=== PATIENT | female | born 1995 | race Caucasian/White ===

== ENCOUNTER 2024-03-13 22:34 | Emergency (ER) | payer BC, SELFPAY ==
[2024-03-13 22:34] VITALS: BP 142/90; PULSE 88; RESP 16; TEMP 36.1; O2SAT 100; BMI 31.3
--- NOTE | 2024-03-14 00:17 | EX.ED.DYSGE1 ---
HPI History of Present Illness Chief Complaint: General Illness Informant: patient and spouse/S.O. Narrative Narrative: Patient is a 28-year-old female with no significant past medical history. She states that over the past 3 to 4 days she has had congestion and drainage. She states with this she has had headache sinus pain/pressure and right ear pain. She states she went to an urgent care where she was diagnosed with an ear infection and placed on amoxicillin. She states has been taking that for the past few days without symptom improvement and secondary to this comes in for evaluation. PFSH PFSH Medical History no medical history Home Medications ?Medication ?Instructions ?Recorded ?Last Taken ?Type cetirizine 10 mg capsule (Zyrtec) 10 mg PO DAILY PRN allergy symptoms 03/10/24 Unknown History ibuprofen 400 mg tablet 400 mg PO Q8H 03/10/24 Unknown History amoxicillin 500 mg capsule 500 mg PO TID 03/13/24 Unknown History amoxicillin 875 mg-potassium 1 tab PO BID 10 days #20 tabs 03/14/24 Unknown Rx clavulanate 125 mg tablet prednisone 20 mg tablet 40 mg (2 x 20 mg) PO DAILY 7 days 03/14/24 Unknown Rx #14 tabs Allergy/AdvReac Type Severity Reaction Status Date / Time No Known Allergies Allergy Verified 03/13/24 22:36 Social History (Updated 03/10/24 @ 12:00 by Abigail Lomas MA) Smoking Status: Never smoker alcohol intake: never substance use type: does not use ROS ROS ED Constitutional Constitutional ED: Reports chills, fever(s) and subjective ENT ENT ED: Reports ear pain right, rhinorrhea and sore throat Cardiovascular Cardiovascular: Denies chest pain Respiratory/Chest Respiratory/Chest: Reports cough; Denies dyspnea Gastrointestinal Gastrointestinal: Denies abdominal pain, diarrhea, nausea or vomiting Genitourinary Genitourinary ED: Denies dysuria Musculoskeletal Musculoskeletal: Reports myalgias Integumentary Denies rash Neurologic Neurologic: Reports headache(s); Denies paresthesias or weakness Hematologic/Lymphatic Hematologic/Lymphatic: Denies easy bleeding or easy bruising EXAM Physical Exam Const Vital Signs: 03/13/24 22:34 03/13/24 22:34 03/14/24 00:24 Temperature 97 F L 98.3 F Temperature Source Temporal Pulse Rate 88 67 Respiratory Rate 16 16 Respiratory Effort Normal Respiratory Pattern Normal Blood Pressure 142/90 H 111/71 Blood Pressure Mean 107 84 Pulse Ox 100 100 Oxygen Delivery Method Room Air Positive well nourished and well developed General Appearance ED: well developed; Negative for pallor HEENT Reports moist mucous membranes HEENT Narrative: Nasal mucosa is hyperemic and boggy with enlarged inferior nasal turbinates There is cobblestoning the posterior pharynx consistent with sinus drainage without airway edema or compromise or secondary findings to suggest infection Mild tenderness to palpation over top of the right maxillary sinus Left TM and canal are normal Right canal is normal but TM shows positive air-fluid levels with loss of landmarks and mild erythema consistent with serous otitis media. No mastoid tenderness bilaterally Eyes PERRL and EOMs intact bilaterally Neck supple Neck Narrative: Positive anterior cervical lymphadenopathy noted No nuchal rigidity or meningeal signs Resp normal respiratory effort and clear to auscultation bilaterally Cardio regular rate and regular rhythm GI normal to inspection, nondistended, normoactive bowel sounds, non-tender, non-distended and no masses Auscultation: normoactive bowel sounds Palpation: soft Extremity normal to inspection Neuro oriented x3, CN's II-XII intact bilaterally and no sensory deficits noted Sensorium / Orientation: alert Motor Exam: strength 5/5 throughout Psych mental status grossly normal Skin no rashes or lesions noted, no wounds and skin turgor normal General Skin Exam: Negative for jaundice or pallor MDM MDM MDM Narrative Medical decision making narrative: Patient arrived to the ER hypertensive otherwise with stable vitals. She reported being on amoxicillin for the past few days without symptom improvement. Differential diagnosis is for viral URI versus sinusitis versus otitis media versus eustachian tube dysfunction versus mastoiditis. Her physical exam shows air-fluid level within the right tympanic membrane consistent with serous otitis media. The fact that she is having persistent symptoms despite amoxicillin indicates the medication is not sufficient to resolve the infection. At this time she will be transition to Augmentin for improved infection control and steroids will be added to help with eustachian tube dysfunction and inflammation. He does not have physical exam findings to suggest systemic infection such as sepsis there are no obvious physical exam findings to suggest mastoiditis or potential cavernous sinus vein thrombosis or pneumocephalus therefore there is no need for imaging studies and she can be discharged home with symptomatic care History & Record Review Discussion w/independent historian: Patient and Significant other Discharge Plan Triage Chief Complaint: General Illness ED Provider: Andes,Pavel Dx/Rx/DC Orders Clinical Impression: Acute serous otitis media of right ear, Viral upper respiratory tract infection Instructions: ED Otitis Media Adult Prescriptions: New amoxicillin-pot clavulanate 875-125 mg tablet 1 tab PO BID 10 Days Qty: 20 0RF prednisone 20 mg tablet 40 mg PO DAILY 7 Days Qty: 14 0RF No Action Zyrtec 10 mg capsule 10 mg PO DAILY PRN (Reason: allergy symptoms) ibuprofen 400 mg tablet 400 mg PO Q8H amoxicillin 500 mg capsule 500 mg PO TID Primary Care Provider: Care Physician,No Primary Referrals: Care Physician,No Primary [Primary Care Provider] - Activity Restrictions/Additional Instructions: Please stop taking the amoxicillin and begin taking the Augmentin as this is a more potent/stronger prescription for your ears and sinuses. Use the steroid as directed to reduce inflammation and pressure. Follow-up with your family doctor for repeat evaluation and if symptoms persist discussed referral to an ENT for further evaluation. Return to the ER should you have any further concerns Print Language: [place] Citizen Disposition Disposition: Home, Self Care Discharge Date/Time: 03/14/24 00:25
[2024-03-14] MEDS: Amox/Clavulanate 875 MG Tablet PO (00:22)
[2024-03-14] MEDS: dexAMETHasone 10 MG/ML Vial PO.IVFORM (00:22)
[2024-03-14 00:24] VITALS: BP 111/71; PULSE 67; RESP 16; TEMP 36.8; O2SAT 100
== END 2024-03-14 00:25 | disposition home or self-care (01) ==
PROVIDERS: Emergency Provider Emergency Medicine; Visit Provider Emergency Medicine
DX: J06.9 Acute upper respiratory infection, unspecified (principal); H65.01 Acute serous otitis media, right ear; R51.9 Headache, unspecified
CPT/HCPCS: 99284

== ENCOUNTER 2024-03-27 15:26 | Emergency (ER) | payer BC, SELFPAY ==
[2024-03-27 15:26] VITALS: BP 127/98; PULSE 94; RESP 14; TEMP 36.2; O2SAT 100; BMI 32.3
--- NOTE | 2024-03-27 16:03 | MRI_ITS ---
STUDY: MRI BRAIN WITHOUT CONTRAST REASON FOR EXAM: Female, 28 years old. optic nerve edema -- Pseudotumor cerebri versus mass TECHNIQUE: Standardized multiplanar fat and water weighted pulse sequences were obtained. Examination brain obtained with standard protocol including multiplanar multiecho noncontrast imaging. Contrast: No contrast administered. COMPARISON: No relevant prior comparison study available HEMISPHERES, CEREBELLUM AND BRAINSTEM: 1. The cerebral parenchyma, ventricular system, subarachnoid spaces have normal configuration and density. There is a normal gyral pattern. There is normal cai/white differentiation. No midline shift.. 2. The hemispheric white matter has normal appearance. 3. No intraparenchymal mass, hemorrhage, or acute territorial infarct. 4. The cerebellum, brainstem, basilar and suprasellar cisterns have normal appearance. No Chiari malformation. PITUITARY: Infundibulum and pituitary have normal configuration. Midline structures appear normal. CSF SPACES: Appropriate for age. No hydrocephalus. Basal cisterns are patent. VESSELS: 1. There are normal flow voids noted in the great vessels at the skull base ORBITS AND PARANASAL SINUSES: 1. Both globes have normal appearance. There are findings suspicious of mild papilledema. Minimal fluid noted along the optic nerve sheath however within normal limits. Remaining globe has normal appearance. 2. Paranasal sinuses are clear. BONY ELEMENTS: Bony elements of the cranial vault, facial skeleton and skull base have normal appearance. SCALP AND SOFT TISSUES: Normal appearance of the soft tissues of the scalp and the visualized face OTHER: None MRI/Brain without Contrast IMPRESSION: 1. No intracranial mass, hemorrhage, or acute territorial infarct. 2. Findings suspicious of mild papillary edema. Minimal fluid along the optic nerve sheath however no other evidence of abnormal fluid or pressure. Normal appearance of the pituitary. No evidence of the sella. Electronically Signed: Trip Avila MD at 20:09 EDT ,
[2024-03-27 16:21] LABS: Absolute Lymphocyte Count 1.96 X10^3/uL (0.83-4.51); Absolute Neutrophil Count 5.9 X10^3/uL (2.0-7.7); Basophil# 0.03 X10^3/uL; Basophil% 0.3 % (0-1); Eosinophil# 0.19 X10^3/uL; Eosinophils% 2.2 % (0-5); Hemoglobin 9.7 g/dL (12.0-15.0); Lymphocyte # 1.96 X10^3/ul (0.83-4.51); Lymphocyte % 22.3 % (19-41); Mean Corp Hgb Conc 29.4 g/dL (32-36); Mean Corpuscular Hgb 21.9 pg (27.0-32.0); Mean Corpuscular Volume 74.7 fL (81-99); Mean Platelet Vol. 10.4 fl (6.2-12.0); Monocyte# 0.72 X10^3/uL; Monocyte% 8.2 % (0-10); NRBC Flagged by Analyzer 0 % (0-5); Neutrophil # 5.86 X10^3/uL (2.7-7.7); Neutrophil % 66.8 % (47-70); Platelet Count 365 K/mm3 (150-450); RBC Distribution Width CV 16.9 % (11.6-14.6); RBC Distribution Width SD 45.4 fl (35.1-43.9); Red Blood Count 4.42 M/mm3 (4.2-5.4); White Blood Count 8.8 K/mm3 (4.4-11.0)
--- NOTE | 2024-03-27 16:34 | EX.ED.VIS.EY ---
HPI <FERDINAND Helms - Last Filed: 03/27/24 16:45> History of Present Illness Chief Complaint: Eye Problem Narrative Narrative: Patient is a 28 female with no significant medical history who presents to the emergency department with complaints of eye pain. Patient dates over the last 2 and half weeks, she has been dealing with a sinus infection. She was started on amoxicillin, then switched to Augmentin, the Augmentin was finished 1 week ago. The patient saw her doctor again today and was placed on doxycycline. Patient went to the salvage worker today and he said that her optic nerves were swollen and she needed to go to the emergency department. Patient states this was both eyes however she has worsening pain to the right. PFSH <FERDINAND Helms - Last Filed: 03/27/24 16:45> [facility] Medical History Anxiety and depression Home Medications ?Medication ?Instructions ?Recorded ?Last Taken ?Type acetazolamide 250 mg tablet 500 mg (2 x 250 mg) PO Q12H #120 03/31/24 Unknown Rx tabs Allergy/AdvReac Type Severity Reaction Status Date / Time No Known Allergies Allergy Verified 03/31/24 17:27 Social History Smoking Status: Current every day smoker tobacco type: e-cigarettes alcohol intake: never substance use type: does not use ROS <FERDINAND Helms - Last Filed: 03/27/24 16:45> ROS ED ROS Narrative Constitutional: Negative for fever, chills, weight loss, weakness Eyes: Negative for vision loss, vision change, double vision. Positive for right eye pain ENT: Negative for any sore throat, ear pain. Positive for congestion Cardiovascular: Negative for any chest pain, tightness, palpitations Respiratory: Negative for any cough, sputum production, hemoptysis, dyspnea, dyspnea on exertion, orthopnea Gastrointestinal: Negative for any abdominal pain, nausea, vomiting, diarrhea, constipation, blood in stool, blood in vomit : Negative for any urinary frequency, dysuria, retention, blood in urine Muscle skeletal: Negative for any neck pain, back pain Neurological: Negative for any headache, syncope, dizziness Skin: Negative for any rashes, itching, abrasions, lacerations Psychiatric: Negative for any depression, anxiety, stress, suicidal ideation, homicidal ideation Hematologic: Negative for any excessive bruising, easy bleeding EXAM <FERDINAND Helms - Last Filed: 03/27/24 16:45> Physical Exam Narrative Exam Narrative: Vital signs reviewed. HEET: Head normocephalic atraumatic, TMs clear bilaterally. Posterior pharynx is clear, moist mucous membranes. Nares clear bilaterally. Turbinates are slightly erythema, there is no gross drainage. Pupils are equal round reactive to light. Neck: Supple with no lymphadenopathy or tenderness. No signs of meningismus. Cardiac: Regular rate and rhythm no murmurs gallops or rubs, equal peripheral pulses bilaterally. Respiratory: Lungs clear to auscultation bilaterally. No chest tenderness. Abdomen: Soft, nontender, nondistended. No abdominal bruit or pulsatile masses. No hepatosplenomegaly Extremities: No peripheral edema, no signs of gross trauma or deformity. Active full range of motion of all extremities. Neuro: Cranial nerves II through XII intact, no focal neurological deficits. Skin: Clean dry and intact with no rash, purpura, petechiae, vesicles or pustules. Backs/flank: No CVA tenderness, no midline spinal tenderness, no deformity. Psych: Normal mood and affect. No SI, HI or acute psychosis. Const Vital Signs: 03/27/24 15:26 Temperature 97.2 F L Temperature Source Temporal Pulse Rate 94 Respiratory Rate 14 Blood Pressure 127/98 H Blood Pressure Mean 107 Pulse Ox 100 Oxygen Delivery Method Room Air [facility] <FERDINAND Helms - Last Filed: 03/27/24 16:45> [facility] Lab Data Labs: Laboratory Results - last 24 hr 03/27/24 16:05 WBC 8.8 RBC 4.42 Hgb 9.7 L Hct 33.0 L MCV 74.7 L MCH 21.9 L MCHC 29.4 L RDW Std Deviation 45.4 H RDW Coeff of Claire 16.9 H Plt Count 365 MPV 10.4 Immature Gran % (Auto) 0.200 Neut % (Auto) 66.8 Lymph % (Auto) 22.3 [place] % (Auto) 8.2 Eos % (Auto) 2.2 Baso % (Auto) 0.3 Absolute Neuts (auto) 5.9 Absolute Lymphs (auto) 1.96 Nucleated RBC % 0 Treatment and Re-Evaluation Narrative: Differential diagnosis includes however is not limited to: Optic neuritis, pseudotumor cerebri, mass, acute sinusitis Patient appears to be in no obvious distress, vital signs are stable, patient appears nontoxic. Presenting to the emergency department for abnormal finding from salvage worker. There is concern that her optic nerves are edematous. Patient received some basic laboratory values, MRI of the brain to rule out any tumor, pseudotumor cerebri. <Dr. Familia Lackey MD - Last Filed: 04/07/24 08:34> [facility] Narrative Medical decision making narrative: I have personally performed a face to face assessment of the patient and have reviewed the DOMENIC Note. I performed a substantive portion of the visit including all aspects of the following. My xie findings include: History is remarkable for ocular pressure. Patient thought she had sinus problems. Was placed antibiotics no improvement. She was seen by, Tomás today. Patient has evidence of bilateral papilledema. She has no light sensitivity. She has no neurosymptoms. Exam is patient has bilateral papilledema. There is no change in vision. There is no peripheral visual loss. Neck is supple. There is no carotid bruits. Heart is regular. Rate is normal. There is no murmur, gallop or rub. Lungs are clear to auscultation. Alert orient x 3. Cranials 2 through 12 are intact. Motor or sensory intact. Medical Decision Making MRI was obtained. MRI reveals bilateral papilledema with no other abnormality. Case was discussed with Dr. Winters the teleneurologist at [facility]. Agrees LP needs to be performed. Agrees if pressure is elevated patient was treated with Diamox. She will need to follow-up with ophthalmology. Since I am unable to perform LP will determine if this needs to be done emergently today since she has no visual loss. Other additions or changes: [None] Management Discussion w/another healthcare provider: Tool And [employer] Technician (6 poke with neurologist at [facility] Dr. Clark. Plan was Diamox if opening pressure is elevated. I am unable to perform opening pressure. Will contact the telemetry neurology line to discuss if LP can be performed on Saturday since we do not have an eventual radiology.) Treatment and Re-Evaluation Narrative: Differential diagnosis includes however is not limited to: Optic neuritis, pseudotumor cerebri, mass, acute sinusitis Patient appears to be in no obvious distress, vital signs are stable, patient appears nontoxic. Presenting to the emergency department for abnormal finding from salvage worker. There is concern that her optic nerves are edematous. Patient received some basic laboratory values, MRI of the brain to rule out any tumor, pseudotumor cerebri. Patient was given Ativan for her anxiety. <Dr. Josemanuel Velez, DO - Last Filed: 03/28/24 00:33> [facility] Narrative Medical decision making narrative: I have personally performed a face to face assessment of the patient and have reviewed the DOMENIC Note. I performed a substantive portion of the visit including all aspects of the following. My xie findings include: History is remarkable for ocular pressure. Patient thought she had sinus problems. Was placed antibiotics no improvement. She was seen by, Tomás today. Patient has evidence of bilateral papilledema. She has no light sensitivity. She has no neurosymptoms. Exam is patient has bilateral papilledema. There is no change in vision. There is no peripheral visual loss. Neck is supple. There is no carotid bruits. Heart is regular. Rate is normal. There is no murmur, gallop or rub. Lungs are clear to auscultation. Alert orient x 3. Cranials 2 through 12 are intact. Motor or sensory intact. Medical Decision Making MRI was obtained. MRI reveals bilateral papilledema with no other abnormality. Case was discussed with Dr. Winters the teleneurologist at [facility]. Agrees LP needs to be performed. Agrees if pressure is elevated patient was treated with Diamox. She will need to follow-up with ophthalmology. Since I am unable to perform LP will determine if this needs to be done emergently today since she has no visual loss. Other additions or changes: [None] Update: 0030 hrs. I spoke again with [facility] neurology on-call. We reviewed the case the MRI findings. Dr. Lackey was unable to obtain an opening pressure. We do not have interventional neurology to perform the lumbar puncture under fluoroscopy until next week. It is felt that given the patient's history and physical this could wait until Saturday. I am going to write an order for outpatient lumbar puncture in radiology to obtain an opening pressure. If it is elevated she is going to return to emergency. If the patient develops any worsening symptoms or has concerns she may return to emergency at any point this weekend. Patient understands the plan. History & Record Review Discussion w/independent historian: Patient Lab Data Attestation: I reviewed the patient's lab results. Discharge Plan Triage Chief Complaint: Eye Problem ED Midlevel Provider: Emerson Bojorquez ED Provider: Familia Lackey Dx/Rx/DC Orders Clinical Impression: Benign intracranial hypertension, Papilledema of both eyes, Adult BMI 32.0-32.9 kg/sq m Instructions: Understanding Vision Problems Prescriptions: No Action acetazolamide 250 mg tablet 500 mg PO Q12H Qty: 120 0RF Primary Care Provider: Kathryn Jones NP Referrals: Kathryn Jones [employer] W[employer] TURBINE TECHNICIAN, [employer] W[employer] TURBINE TECHNICIAN-C [Primary Care Provider] - Activity Restrictions/Additional Instructions: You need a lumbar puncture to measure the opening pressure of the cerebrospinal fluid for further evaluation. In speaking with [facility] neurology this can wait over the weekend to be done on Saturday. If you develop visual field loss or worsening symptoms please return back to emergency. If your opening pressure is elevated during the lumbar puncture you will be brought back to the emergency room. Print Language: Maltese Disposition Disposition: Home, Self Care Discharge Date/Time: 03/28/24 00:56
[2024-03-27 16:41] LABS: Anion Gap 8 (5-15); BUN 11 mg/dL (7-18); BUN/Creat Ratio 16.5 RATIO (10-20); Calcium,Total 9.2 mg/dL (8.5-10.1); Chloride 105 mmol/L (98-107); Creatinine, Serum 0.67 mg/dL (0.55-1.02); EST Glomerular Filtration Rate 110 mL/min (>60); Est Glom Filt Rate - Afr Amer 133 mL/min (>60); Estimated Creatinine Clearance 149.13 ml/min; Glucose 92 mg/dL (74-106); Potassium 3.8 mmol/L (3.5-5.1); Sodium Level 137 mmol/L (136-145)
[2024-03-27 16:42] LABS: Internal QC Validated? YES +Cl - CLEAR BKGD; Pregnancy, Serum, hCG Quali. NEGATIVE Negative; Record Kit Lot#, Serum Preg. 735774
[2024-03-27 17:26] VITALS: BP 123/64; PULSE 69; RESP 16; O2SAT 98
[2024-03-27 19:16] LABS: Erythrocyte Sedimentation Rate 31 mm/hr (0-30)
[2024-03-27 19:19] VITALS: BP 117/87; PULSE 77; RESP 14; O2SAT 98
[2024-03-27 21:00] VITALS: BP 122/72; PULSE 70; RESP 12; O2SAT 98
--- NOTE | 2024-03-27 22:32 | PCM.HP.STD ---
HPI - General HPI Narrative REYNA WHITAKER, is a 28 F who presents [facility] Medical History (Updated 03/27/24 @ 15:36 by Dionne Márquez) Anxiety and depression Home Medications ?Medication ?Instructions ?Recorded ?Last Taken ?Type doxycycline monohydrate 100 mg 100 mg PO BID 03/27/24 Unknown History tablet escitalopram oxalate 10 mg tablet 5 mg PO DAILY 03/27/24 Unknown History Allergy/AdvReac Type Severity Reaction Status Date / Time No Known Allergies Allergy Verified 03/27/24 15:27 Social History (Updated 03/10/24 @ 12:00 by Abigail Lomas MA) Smoking Status: Current every day smoker tobacco type: e-cigarettes alcohol intake: never substance use type: does not use Vital Signs Vital Signs Vital Signs: 03/27/24 15:26 03/27/24 17:26 03/27/24 19:19 Temperature 97.2 F L Temperature Source Temporal Pulse Rate 94 69 77 Respiratory Rate 14 16 14 Blood Pressure 127/98 H 123/64 H 117/87 H Blood Pressure Mean 107 83 97 Pulse Ox 100 98 98 Oxygen Delivery Method Room Air Room Air Room Air 03/27/24 21:00 Temperature Temperature Source Pulse Rate 70 Respiratory Rate 12 Blood Pressure 122/72 H Blood Pressure Mean 88 Pulse Ox 98 Oxygen Delivery Method Room Air Weight Weight: 212 lb 11.937 oz Body Mass Index (BMI) 32.3 Results Lab / Micro Data 03/27/24 16:05 03/27/24 16:05 Labs: Laboratory Results - last 24 hr 03/27/24 16:05: WBC 8.8, RBC 4.42, Hgb 9.7 L, Hct 33.0 L, MCV 74.7 L, MCH 21.9 L, MCHC 29.4 L, RDW Std Deviation 45.4 H, RDW Coeff of Claire 16.9 H, Plt Count 365, MPV 10.4, Immature Gran % (Auto) 0.200, Neut % (Auto) 66.8, Lymph % (Auto) 22.3, [place] % (Auto) 8.2, Eos % (Auto) 2.2, Baso % (Auto) 0.3, Absolute Neuts (auto) 5.9, Absolute Lymphs (auto) 1.96, Nucleated RBC % 0, Sodium 137, Potassium 3.8, Chloride 105, Carbon Dioxide 24.0, Anion Gap 8, BUN 11, Creatinine 0.67, Estim Creat Clear Calc 149.13, Est GFR (MDRD) Af Amer 133, Est GFR (MDRD) Non-Af 110, BUN/Creatinine Ratio 16.5, Glucose 92, Calcium 9.2, Serum , Qual NEGATIVE 03/27/24 18:59: ESR 31 H Imaging Radiology Impression Brain MRI 03/27/24 16:03 IMPRESSION: 1. No intracranial mass, hemorrhage, or acute territorial infarct. 2. Findings suspicious of mild papillary edema. Minimal fluid along the optic nerve sheath however no other evidence of abnormal fluid or pressure. Normal appearance of the pituitary. No evidence of the sella. Electronically Signed: Trip Avila MD at 20:09 EDT ,
[2024-03-27 23:00] VITALS: BP 106/63; PULSE 77; RESP 18; O2SAT 97
[2024-03-27] MEDS: Lidocaine 1% (20 ml mdv) 20 ML Vial 3 ML INFILT (23:32)
[2024-03-27] MEDS: LORazepam 2 MG/ML Syringe 0.5 MG IV (23:33)
[2024-03-28 00:56] VITALS: BP 126/81; PULSE 95; RESP 16; TEMP 37.2; O2SAT 97
== END 2024-03-28 00:56 | disposition home or self-care (01) ==
PROVIDERS: Nurse Practitioner; Emergency Provider Emergency Medicine; PCP Nurse Practitioner Family; Visit Provider Emergency Medicine
DX: H47.10 Unspecified papilledema (principal); G93.2 Benign intracranial hypertension; F17.290 Nicotine dependence, other tobacco product, uncomplicated; F41.9 Anxiety disorder, unspecified; F32.A Depression, unspecified; Z79.899 Other long term (current) drug therapy
CPT/HCPCS: 62270; 70551; 80048; 84703; 85025; 85652; 96374; 99283; A4216

== ENCOUNTER 2024-03-31 13:01 | Emergency (ER) | payer BC, SELFPAY ==
[2024-03-31 13:03] VITALS: BP 108/97; PULSE 89; RESP 16; TEMP 36.8; O2SAT 99
--- NOTE | 2024-03-31 13:31 | EX.ED.DYSGE1 ---
HPI History of Present Illness Chief Complaint: Edema Informant: patient Narrative Narrative: 28-year-old female has been having headaches and vision disturbances for about the past 3 months. Several days ago she was seen here in the ER had an MRI and had a ophthalmology consultation prior to that, both consistent with papilledema and she was sent to the ER for an LP. They were unable to get it clinically, so she had it today at interventional radiology, for an opening pressure measurement and nothing else. It was over 40. Therefore they bandaged her and sent her here to the ER. Patient states her headache and blurry vision in her right eye, where the symptoms are more prominent for the last couple months, are a little better right now. She is feeling okay otherwise. [facility] Medical History Anxiety and depression Home Medications ?Medication ?Instructions ?Recorded ?Last Taken ?Type acetazolamide 250 mg tablet 500 mg (2 x 250 mg) PO Q12H #120 03/31/24 Unknown Rx tabs Allergy/AdvReac Type Severity Reaction Status Date / Time No Known Allergies Allergy Verified 03/31/24 13:02 Social History Smoking Status: Current every day smoker tobacco type: e-cigarettes alcohol intake: never substance use type: does not use ROS ROS ED Constitutional Constitutional ED: Denies chills or fever(s) Eyes Eyes: Reports blurry vision bilateral (worse in right, occ w/ kaleidoscope vision); Denies diplopia ENT ENT ED: Denies rhinorrhea or sore throat Cardiovascular Cardiovascular: Denies chest pain or palpitations Respiratory/Chest Respiratory/Chest: Denies cough or dyspnea Gastrointestinal Gastrointestinal: Denies abdominal pain, diarrhea, nausea or vomiting Genitourinary Genitourinary ED: Denies dysuria or hematuria Musculoskeletal Musculoskeletal: Denies back pain or neck pain Integumentary Denies abscess or rash Neurologic Neurologic: Reports headache(s); Denies paresthesias or weakness Psychiatric Psychiatric: Denies suicidal thoughts EXAM Physical Exam Const Vital Signs: 03/31/24 13:03 03/31/24 13:39 03/31/24 15:02 Temperature 98.3 F Temperature Source Oral Pulse Rate 89 99 Respiratory Rate 16 14 Respiratory Effort Normal Respiratory Pattern Normal Blood Pressure 108/97 H 129/79 H Blood Pressure Mean 100 95 Pulse Ox 99 99 Oxygen Delivery Method Room Air Room Air Positive well nourished and well developed General Appearance ED: well developed and NAD HEENT Reports moist mucous membranes normocephalic and atraumatic Eyes PERRL and EOMs intact bilaterally Neck full ROM and supple Resp normal respiratory effort and clear to auscultation bilaterally Cardio regular rate, regular rhythm and no murmurs GI non-tender and non-distended Auscultation: normoactive bowel sounds Palpation: soft Back/Spine no CVA tenderness General Back: other FROM Extremity normal to inspection General Extremety ED: Negative for edema, pulses abnormal or tenderness General Extremity: Negative for edema or pulses abnormal Neuro oriented x3, CN's II-XII intact bilaterally and no sensory deficits noted Neuro Narrative: Normal psaevv-[id number]-[id number] and pzbi-jf-hids bilaterally. No aphasia. No dysarthria. NIHSS 0. Sensorium / Orientation: awake and alert Motor Exam: strength 5/5 throughout Psych mental status grossly normal Skin no rashes or lesions noted and no wounds MDM MDM MDM Narrative Medical decision making narrative: Neurology consulted. I reviewed prior ED notes, they do state they spoke with neurology and they recommended Diamox if her pressures are high, but there is no consultation from neurology to give me specifics, so we consulted them again for recommendations. I spoke with Dr. Winters. She recommends Diamox 500 mg twice daily and having the patient follow-up with ophthalmology. Discussed with the patient she has seen an mental health social worker at [facility] but she has not seen an livestock broker yet so I paged the on-call Dr. Gold, but marketing secretary & angledozer operator were unable to reach her and the patient wants to leave, so I will have the patient make an appointment to follow-up and prescribe her Diamox for now. Management Discussion w/another healthcare provider: Radiological Equipment Specialist (Neurology Dr. Winters) Discharge Plan Triage Chief Complaint: Edema ED Provider: Ayo Josue Dx/Rx/DC Orders Clinical Impression: Benign intracranial hypertension, Papilledema of both eyes Instructions: Intracranial hypertension Prescriptions: New acetazolamide 250 mg tablet 500 mg PO Q12H Qty: 120 0RF Rx Instructions: begin 1-2 days before ascent; continue for at least 48 hrs after descent Primary Care Provider: Kathryn Jones FORMAL WEAR RENTAL CLERK Referrals: Sita Gold MD [Med Staff - Active Staff] - As soon as possible (call for appt) Kathryn Jones FORMAL WEAR RENTAL CLERK, FORMAL WEAR RENTAL CLERK-C [Primary Care Provider] - Print Language: Welsh Disposition Disposition: Home, Self Care
[2024-03-31 15:02] VITALS: BP 129/79; PULSE 99; RESP 14; O2SAT 99
[2024-03-31 15:10] VITALS: BMI 33.0
[2024-03-31 16:34] VITALS: BP 126/77; PULSE 91; RESP 14; TEMP 36.7; O2SAT 96
== END 2024-03-31 16:36 | disposition home or self-care (01) ==
PROVIDERS: Emergency Provider Emergency Medicine; PCP Nurse Practitioner Family; Visit Provider Emergency Medicine
DX: G93.2 Benign intracranial hypertension (principal); R51.9 Headache, unspecified; H47.10 Unspecified papilledema; R60.9 Edema, unspecified; F17.290 Nicotine dependence, other tobacco product, uncomplicated
CPT/HCPCS: 99282; A4216

== ENCOUNTER 2024-03-31 17:25 | Emergency (ER) | payer BC, SELFPAY ==
[2024-03-31 17:25] VITALS: BP 111/85; PULSE 129; RESP 20; TEMP 36.4; O2SAT 99; BMI 31.4
--- NOTE | 2024-03-31 17:28 | MRI_ITS ---
STUDY: EXAMINATION - MRV BRAIN WITHOUT CONTRAST REASON FOR EXAM: Female, 28 years old. intracranial HTN, eval for venous dural thrombosis TECHNIQUE: 3D [id number] (TOF) imaging was performed in a paolo MRI scanner. COMPARISON: None. FINDINGS: Normal flow within the superior sagittal sinus. Normal flow within the superficial cortical veins. Normal flow within the paired internal cerebral veins, vein of [place] and straight sinus. Normal flow within the bilateral transverse and sigmoid sinuses. There are small filling defects at the confluence of the transverse and sigmoid sinuses bilaterally which due to the symmetry of the findings likely represents flow related artifact due to the curvature of the vessels rather than true intraluminal clot. Normal flow within the bilateral jugular bulbs. MRI/MRV Head Without Contrast IMPRESSION: No definitive evidence for dural sinus thrombosis.. Electronically Signed: John Thompson MD at 18:45 EDT ,
--- NOTE | 2024-03-31 17:29 | EDS_ITS ---
HPI <Dr. Ayo Josue MD - Last Filed: 03/31/24 17:35> History of Present Illness Chief Complaint: Eye Problem Narrative Narrative: Patient was just discharged from the ER, we were waiting for specialist to call back regarding her newly diagnosed intracranial hypertension, she is back to receive another recommended test that she did not get before. Nothing hs changed and she was discharged an hour ago. PFSH <Dr. Ayo Josue MD - Last Filed: 03/31/24 17:35> PFSH Medical History Anxiety and depression Home Medications ?Medication ?Instructions ?Recorded ?Last Taken ?Type acetazolamide 250 mg tablet 500 mg (2 x 250 mg) PO Q12H #120 03/31/24 Unknown Rx tabs Allergy/AdvReac Type Severity Reaction Status Date / Time No Known Allergies Allergy Verified 03/31/24 17:27 Social History Smoking Status: Current every day smoker tobacco type: e-cigarettes alcohol intake: never substance use type: does not use EXAM <Dr. Ayo Josue MD - Last Filed: 03/31/24 17:35> Physical Exam Const Vital Signs: 03/31/24 17:25 Temperature 97.6 F L Temperature Source Temporal Pulse Rate 129 H Respiratory Rate 20 H Blood Pressure 111/85 H Blood Pressure Mean 93 Pulse Ox 99 Oxygen Delivery Method Room Air MDM <Dr. Ayo Josue MD - Last Filed: 03/31/24 17:35> MDM MDM Narrative Medical decision making narrative: ROS ED Constitutional Constitutional ED: Denies chills or fever(s) Eyes Eyes: Reports blurry vision bilateral (worse in right, occ w/ kaleidoscope vision); Denies diplopia ENT ENT ED: Denies rhinorrhea or sore throat Cardiovascular Cardiovascular: Denies chest pain or palpitations Respiratory/Chest Respiratory/Chest: Denies cough or dyspnea Gastrointestinal Gastrointestinal: Denies abdominal pain, diarrhea, nausea or vomiting Genitourinary Genitourinary ED: Denies dysuria or hematuria Musculoskeletal Musculoskeletal: Denies back pain or neck pain Integumentary Denies abscess or rash Neurologic Neurologic: Reports headache(s); Denies paresthesias or weakness Psychiatric Psychiatric: Denies suicidal thoughts EXAM Physical Exam Const Positive well nourished and well developed General Appearance ED: well developed and NAD HEENT Reports moist mucous membranes normocephalic and atraumatic Eyes PERRL and EOMs intact bilaterally Neck full ROM and supple Resp normal respiratory effort and clear to auscultation bilaterally Cardio regular rate, regular rhythm and no murmurs GI non-tender and non-distended Auscultation: normoactive bowel sounds Palpation: soft Back/Spine no CVA tenderness General Back: other FROM Extremity normal to inspection General Extremety ED: Negative for edema, pulses abnormal or tenderness General Extremity: Negative for edema or pulses abnormal Neuro oriented x3, CN's II-XII intact bilaterally and no sensory deficits noted Neuro Narrative: Normal mxqeeg-ey-rvtf and iqtq-al-ogem bilaterally. No aphasia. No dysarthria. NIHSS 0. Sensorium / Orientation: awake and alert Motor Exam: strength 5/5 throughout Psych mental status grossly normal Skin no rashes or lesions noted and no wounds MDM: MRV ordered, patient will be observed until that is available to rule out venous dural thrombosis, if negative plan will be to discharge her home with follow-up with neurology and ophthalmology, she was already prescribed Diamox 500 mg twice daily which is the initial recommended treatment. <Dr. Josemanuel Velez, DO - Last Filed: 03/31/24 19:17> [facility] Radiography Diagnostic Testing: Clinical Impression(s) from Imaging Studies Brain MRI 03/31/24 17:28 IMPRESSION: No definitive evidence for dural sinus thrombosis.. Electronically Signed: John Thompson MD at 18:45 EDT , Discharge Plan Triage Chief Complaint: Eye Problem ED Provider: Ayo Josue Dx/Rx/DC Orders Clinical Impression: Benign intracranial hypertension, Papilledema of both eyes Instructions: Intracranial hypertension Prescriptions: Continued acetazolamide 250 mg tablet 500 mg PO Q12H Qty: 120 0RF Primary Care Provider: Kathryn Jones SHOE SHANKER Referrals: Miguel Reyna MD [Non-Staff -Ordering Privileges] - As soon as possible Sita Gold MD [Med Staff - Active Staff] - Print Language: French
[2024-03-31 19:04] VITALS: BP 126/74; PULSE 86; RESP 16; TEMP 36.5; O2SAT 99
== END 2024-03-31 19:15 | disposition home or self-care (01) ==
LOC: ED 17:42
PROVIDERS: Emergency Provider Emergency Medicine; PCP Nurse Practitioner Family; Visit Provider Emergency Medicine
DX: G93.2 Benign intracranial hypertension (principal); H47.10 Unspecified papilledema; F17.290 Nicotine dependence, other tobacco product, uncomplicated; R51.9 Headache, unspecified; R60.9 Edema, unspecified
CPT/HCPCS: 70544; 99282; A4216

== ENCOUNTER → 2024-03-31 | Outpatient (CLI) | payer BC, SELFPAY ==
[2024-03-31 11:40] VITALS: BP 144/84; PULSE 103; RESP 16; TEMP 37.3; O2SAT 100; BMI 33.3
[2024-03-31] MEDS: LORazepam 1 MG Tablet PO (12:03)
[2024-03-31] MEDS: Lidocaine 2% (5ml sdv) 5 ML VIAL.MPF INFILT (12:30)
[2024-03-31 12:46] VITALS: BP 124/84; PULSE 94; RESP 16; O2SAT 100
--- NOTE | 2024-03-31 13:07 | PCM.OP.PRO ---
Procedure Report Date of Procedure: 03/31/24 Assessment & Plan Assessment/Plan (1) Papilledema of both eyes: PLAN: PROCEDURE: Fluoroscopic guided Lumbar Puncture. ORDERING PROVIDER: Dr. Velez CLINICAL INDICATION: Female, 28 years old. Papilledema both eyes. PROVIDER: JUDIE Ca MEDICATIONS: 2% lidocaine administered subcutaneously for local anesthesia ACCESS SITE: Lower posterior back. NEEDLE: 20-gauge spinal needle. SPECIMEN: CSF was not collected with this lumbar puncture. OPENING PRESSURE: > 40 mmHg COMPLICATIONS: None immediate. FLUOROSCOPY TIME (if supplied): 2 minutes/49 seconds. 78.44 mGy The risks, benefits, and alternatives to the procedure were explained to the patient. The specific risks of bleeding, infection, and neurovascular injury were detailed and accepted. Witnessed informed consent was obtained. The patient was placed on the fluoroscopic table in the prone position. The level for needle entry was determined and marked. The overlying skin was cleaned and prepped in the usual sterile fashion with betadine. 2% lidocaine was administered subcutaneously for local anesthesia. Under fluoroscopic guidance a 20-gauge spinal needle was advanced. The thecal sac was entered at the L 3-L 4 vertebral level. The inner stylet was removed. There was spontaneous flow of clear-colored CSF fluid. An opening pressure was measured with the patient in the prone position. Opening pressure was measured to be greater than 40 mmHg. The needle was withdrawn. Hemostasis was achieved and a sterile dressing placed. The patient tolerated the procedure well without any immediate complications. The patient was sent to the emergency department per requesting physician's orders. IMPRESSION: Successful fluoroscopic-guided lumbar puncture. Opening pressure greater than 40 mmHg. Procedures Radiology Radiology Xray Procedures: 40397 Lumbar Puncture Dx Multi Select Codes Radiology Rad Xray Procedures: [id number] Fluoroscopic guidance for needle placement
== END | disposition home or self-care (01) ==
LOC: RAD 11:16
PROVIDERS: PCP Nurse Practitioner Family; Referring Provider Emergency Medicine; Visit Provider Emergency Medicine
DX: H47.10 Unspecified papilledema (principal)
CPT/HCPCS: 62328